=== PATIENT | female | born 1990 | race Caucasian/White ===

== ENCOUNTER 2018-03-13 22:54 | Emergency (ER) | payer OTHER ==
[~2018-03-13] VITALS: Ht 157.5 cm; Wt 53.5 kg
[~2018-03-13 22:54] MED LIST: KEPPRA 500 MG500 M1 PO; LAMICTAL100 MG PO; ZOMIG2.5 M1 PO
[2018-03-13 23:02] VITALS: BP 111/71
[2018-03-13] MEDS ORDERED: KEPPRA1000 MG (23:09)
[2018-03-13] MEDS ORDERED: PRENATAL (23:09)
[2018-03-13] MEDS ORDERED: LAMICTAL XR100 MG (23:09)
[2018-03-13] MEDS ORDERED: FOLIC ACID1 MG (23:10)
== END 2018-03-13 23:35 | disposition home or self-care (01) ==
LOC: M.ERS 22:54
DX: S43.004A Unspecified dislocation of right shoulder joint, initial encounter (principal); W18.2XXA Fall in (into) shower or empty bathtub, initial encounter; Y93.89 Activity, other specified; Y92.89 Other specified places as the place of occurrence of the external cause; Y99.8 Other external cause status